=== PATIENT | female | born 1995 | race Caucasian/White ===

== ENCOUNTER 2022-05-23 12:53 | Emergency (ER) | payer MEDICAID ==
[~2022-05-23] VITALS: Ht 157.5 cm; Wt 81.6 kg
--- NOTE | 2022-05-23 13:50 | NUR ---
PT bib parent from home. CC sore throat, chest pain, cough, pain on inspiration. Pt states symptoms startd 24 hours ago pt is afebrile. VSS NAD.
[2022-05-23] MEDS ORDERED: MED4 PO (13:52)
[2022-05-23] MEDS ORDERED: BENZ100C92 PO (13:52)
--- NOTE | 2022-05-23 14:00 | NUR ---
ER Dr.DELA VERAS at bedside examining patient.
--- NOTE | 2022-05-23 14:00 | NUR ---
Patient is a 27-year-old female with no significant prior medical history who presents to the ED for a 4-day history of flulike symptoms. Patient has associated rhinorrhea, cough, congestion, sore throat, and myalgia. Patient symptoms are mild to moderate in severity, persistent, and gradual in onset.
[2022-05-23 14:30] VITALS: BP_SYST 101
[2022-05-23 14:47] VITALS: BP_SYST 110
--- NOTE | 2022-05-23 14:59 | NUR ---
Patient given written and verbal discharge instructions and verbalizes understanding. ER MD discussed with patient the results and treatment provided. Patient in stable condition. ID arm band removed. Rx of MEDROL AND BENSONATATE given. Patient educated on pain management and to follow up with PMD. Opportunity for questions provided and answered. Medication side effect fact sheet provided.
== END 2022-05-23 14:59 | disposition home or self-care (01) ==
LOC: SED 12:53
DX: J06.9 Acute upper respiratory infection, unspecified (principal); R05.9 Cough, unspecified; R09.81 Nasal congestion; J02.9 Acute pharyngitis, unspecified; Z79.899 Other long term (current) drug therapy
CPT/HCPCS: 99283